=== PATIENT | female | born 1965 | race Two or more races ===

== ENCOUNTER → 2016-08-08 | Outpatient (CLI) | payer BC ==
--- NOTE | 2016-08-08 17:16 | Diagnostic Imaging Report ---
Indication: PAIN Technique: Multiple views of the left ribs Comparison: None Findings: No acute fractures. No pneumothorax. There is a left breast prosthesis. Impression: Negative
--- NOTE | 2016-08-08 17:17 | Diagnostic Imaging Report ---
Indication: PAIN Technique: 2 views of the chest Comparison: none. Findings: Lungs and pleural spaces are clear. Heart size is normal. Bones are unremarkable.. There is very slight anterior wedging of the T7 vertebral body. There is mild thoracic scoliotic deformity. There is cervical spine fusion hardware.. Left breast prosthesis is better seen on rib radiographs Impression: No acute cardiopulmonary process Equivocal slight anterior wedging of the T12 vertebral body, compression fracture not excludable. Consider MRI if this is of clinical concern.
== END | disposition home or self-care (01) ==
LOC: RAD 15:40
DX: R07.81 Pleurodynia (principal)
CPT/HCPCS: 71020

== ENCOUNTER 2019-01-18 06:08 | Day surgery (SDC) | payer BC ==
[~2019-01-18] VITALS: Ht 162.6 cm; Wt 780.2 kg
[2019-01-18] VITALS (9 sets, daily range): BP systolic 98–121; BP diastolic 59–81
[2019-01-18] MEDS ORDERED: ZANTAC150 MG ORAL (06:48)
[2019-01-18] MEDS ORDERED: PROTONIX40 MG ORAL (06:48)
[2019-01-18] MEDS ORDERED: LISINOPRIL10 MG ORAL (06:48)
[2019-01-18] MEDS ORDERED: Propofol 200mg/20ml IV ONE (07:13)
[2019-01-18] MEDS ORDERED: Midazolam 2mg/2ml Inj ONE (07:13)
[2019-01-18] MEDS ORDERED: fentaNYL 100 mcg/2 mL IV ONE (07:13)
[2019-01-18] MEDS ORDERED: Lidocaine 1% MPF 10mg/ml 5ml ONE ×2 (07:13→07:14)
[2019-01-18] MEDS ORDERED: NS Irrig 4000ml IRRIG ONE ×2 (07:20→07:46)
[2019-01-18] MEDS ORDERED: NS Irrig 1000ml ONE (07:30)
[2019-01-18] MEDS ORDERED: Sterile Water Irrig 1000ml IRRIG ONE (07:30)
[2019-01-18] MEDS ORDERED: LR 1000ml ONE (07:30)
[2019-01-18] MEDS ORDERED: D5 1/2NS 1,000 ML IV SCH (07:45)
[2019-01-18] MEDS ORDERED: Tylenol #3 tab (300mg/30mg) ORAL PRN (07:45)
[2019-01-18] MEDS ORDERED: Metoclopramide 10mg/2ml Inj IVP PRN ×2 (07:45→08:30)
[2019-01-18] MEDS ORDERED: HYDROcodone/Acetamin 5/325 tab ORAL PRN (07:45)
[2019-01-18] MEDS ORDERED: DiphenhydrAMINE 50mg/ml Inj IVP PRN (07:45)
[2019-01-18] MEDS ORDERED: HYDROmorphone 1mg/ml Carpuject SUBQ PRN (07:45)
--- NOTE | 2019-01-18 08:22 | Anethesia Preoperative Eval ---
Anesthesia Pre-op PMH/ROS General Date of Evaluation: Jan 18, 2019 Time of Evaluation: 07:20 Anesthesiologist: Hawa Shetty CRNA ASA Score: ASA 2 Mallampati Score Class I : Soft palate, uvula, fauces, pillars visible Class II: Soft palate, uvula, fauces visible Class III: Soft palate, base of uvula visible Class IV: Only hard plate visible Mallampati Classification: Class II Surgeon: Orin Diagnosis: frequent menstruation Surgical Procedure: D&C hysteroscopy with hydrothermal ablation Anesthesia History: none Social History: smoking, current smoker Family History: no anesthesia problems Allergies: Coded Allergies: PENICILLINS (Verified Allergy, Unknown, 01/15/19) Medications: see eMAR Patient NPO?: Yes NPO Date: Jan 18, 2019 NPO Time: 00:00 Past Medical History Cardiovascular: Reports: HTN; Denies: CAD, [place], valve dz, arrhythmia, other Pulmonary: Reports: other - 30 pack year smoker; Denies: asthma, COPD, SARITA Gastrointestinal/Genitourinary: Reports: GERD, other - fibroids, frequent menstruation; Denies: CRI, ESRD Neurologic/Psychiatric: Denies: dementia, CVA, depression/anxiety, TIA, other Endocrine: Denies: DM, hypothyroidism, steroids, other HEENT: Denies: cataract (L), cataract (R), glaucoma, [place] (L), [place] (R), other Hematology/Immune: Denies: anemia, DVT, bleeding disorder, other Musculoskeletal/Integumentary: Denies: OA, RA, DJD, DDD, edema, other PMH Narrative: as noted above PSxH Narrative: cervical surgery, (B) breast implants Anesthesia Pre-op Phys. Exam Physician Exam Last Vital Signs Date Time Temp Pulse Resp B/P (MAP) Pulse Ox O2 Delivery O2 Flow Rate FiO2 01/18/19 06:57 Room Air 01/18/19 06:43 97.8 76 18 115/72 99 Constitutional: NAD Neurologic: other - alert and oriented Cardiovascular: RRR Respiratory: CTA Gastrointestinal: S/NT/ND Airway Exam Mallampati Score: Class II MO: full Neck: FROM TMD: > 3 FB ROM: full Teeth: intact Dentures: no upper, no lower Anesthesia Pre-op A/P Labs reviewed, see chart Urine Test Test 01/18/19 06:15 Urine HCG, Qualitative Negative (NEGATIVE) Studies Pre-op Studies: EKG - NSR Risk Assessment & Plan Assessment: ASA 2 ok to proceed Plan: GA Status Change Before Surgery: No Pre-Antibiotics Drug: Hawa Anand CRNA Jan 18, 2019 08:22
[2019-01-18] MEDS ORDERED: Hydromorphone 0.5mg/0.5ml inj IVP PRN (08:30)
--- NOTE | 2019-01-18 08:32 | Brief Operative Note ---
Immediate Post Operative Note Operative Note Pre-op Diagnosis: metromenorrhagia Procedure: Dilation and Curettage, hysteroscopy, HTA ablation Post-op Diagnosis: same Findings: consistent w/pre-op dx studies Surgeon: aspen Anesthesia: general Specimen: yes Complications: none Condition: stable Fluids: crystalloid Estimated Blood Loss: none Implant(s) used?: No Shanta Sr MD Jan 18, 2019 08:32
--- NOTE | 2019-01-18 08:33 | Pre-Procedure Note/Attestation ---
Pre-Procedure Note/Attestation Complete Prior to Procedure Planned Procedure: not applicable Procedure Narrative: hysteroscopy dilation and curettage, hysteroscopy HTA ablation Indications for Procedure Pre-Operative Diagnosis: metromenorrhagia Attestation I attest that I discussed the nature of the procedure; its benefits; risks and complications; and alternatives (and the risks and benefits of such alternatives ), prior to the procedure, with the patient (or the patient's legal hr representative). I attest that, if there was a reasonable possibility of needing a blood transfusion, the patient (or the patient's legal hr representative) was given the [facility] standardized written summary, pursuant to the [place] Blood Safety Act ([place] Health and Safety Code # 1645, as amended). I attest that I re-evaluated the patient just prior to the surgery and that there has been no change in the patient's H&P, except as documented below: Shanta Sr MD Jan 18, 2019 08:33
--- NOTE | 2019-01-18 08:47 | Immediate Post-Op Evaluation ---
Immediate Post-Op Evalulation Immediate Post-Op Evalulation Procedure: D&C, hysteroscopy with hydrothermal ablation Date of Evaluation: Jan 18, 2019 Time of Evaluation: 08:45 IV Fluids: LR 900 ml Estimated Blood Loss: minimal Urinary Output: 100 ml Blood Pressure Systolic: 118 Blood Pressure Diastolic: 80 Pulse Rate: 77 Respiratory Rate: 19 O2 Sat by Pulse Oximetry: 100 Temperature (Fahrenheit): 98.7 Pain Score (1-10): 0 Nausea: No Vomiting: No Complications none Patient Status: awake, reacts, patent, extubated Hydration Status: adequate Drug: cefazolin 2000mg IV Given Within 1 Hr of Incision: Yes Time Given: 07:45 Hawa Shetty CRNA Jan 18, 2019 08:47
[2019-01-18] MEDS ORDERED: Ketorolac 30mg Inj ONE (09:31)
--- NOTE | 2019-01-18 09:51 | 48 Hour Post Anesthesia Eval ---
Post Anesthesia Evaluation Procedure: D&C, hysteroscopy with hydrothermal ablation Date of Evaluation: Jan 18, 2019 Time of Evaluation: 09:50 Blood Pressure Systolic: 101 0: 63 Pulse Rate: 61 Respiratory Rate: 14 Temperature (Fahrenheit): 98.7 O2 Sat by Pulse Oximetry: 96 Airway: patent Nausea: No Vomiting: No Pain Intensity: 4 Hydration Status: adequate Cardiopulmonary Status: stable Mental Status/LOC: patient returned to baseline Follow-up Care/Observations: per gyne Post-Anesthesia Complications: none Follow-up care needed: N/A Hawa Shetty CRNA Jan 18, 2019 09:51
--- NOTE | 2019-01-18 11:00 | Operative Note - Dictated ---
DATE OF OPERATION: 01/18/2019 PREOPERATIVE DIAGNOSIS: Metromenorrhagia. POSTOPERATIVE DIAGNOSIS: Metromenorrhagia. PROCEDURE: D and C, hysteroscopy, hydrothermal ablation. SURGEON: Shanta Sr M.D. FRAME EXPANDER: None. ANESTHESIOLOGIST: Hawa Shetty. ANESTHESIA: General. ESTIMATED BLOOD LOSS: None. PROCEDURE IN DETAIL: After ensuring informed consent, the patient was taken to the operating room where general anesthesia was induced. The patient was sterilely draped and placed in dorsal lithotomy position with legs up in Diego stirrups. A weighted speculum was placed in the vagina. Cervix was easily dilated to a 7 Hegar dilator. Hysteroscope was placed inside the uterine cavity. Uterine cavity was distended with normal saline. Normal uterine cavity was observed with both tubal ostia. Next, HCA ablation was initiated. First test was done to ensure that no fluid escape and next hydrothermal ablation was initiated for 10 minutes and 90 degree Celsius. There was no fluid escaping during procedure and there were some moist Ray-Tecs in the vagina just in case. After 10 minutes cool down was initiated, which continued for 2 minutes. Then the uterine cavity was observed. There were no perforations and endometrium looked visibly ablated. Then hysteroscope was removed from the uterus. All instruments and laps were removed from the vagina. At the end of the procedure, all instrument and lap count was correct x2. The patient was taken to the recovery area, extubated in stable condition. Shanta Sr M.D. DR: VISHAL JOB#: [id number] CC:
== END 2019-01-18 10:10 | disposition home or self-care (01) ==
LOC: SUR 06:08
DX: N92.1 Excessive and frequent menstruation with irregular cycle (principal); Z79.899 Other long term (current) drug therapy; Z88.0 Allergy status to penicillin; I10 Essential (primary) hypertension; F17.200 Nicotine dependence, unspecified, uncomplicated; K21.9 Gastro-esophageal reflux disease without esophagitis; E78.5 Hyperlipidemia, unspecified; E66.3 Overweight; F17.210 Nicotine dependence, cigarettes, uncomplicated
CPT/HCPCS: 58558; 58563; 81025; J0690; J1170; J1885; J2250; J2405; J2704; J3010; 94003; 94150